=== PATIENT | female | born 1985 | race Caucasian/White ===

== ENCOUNTER 2016-11-22 14:35 | Emergency (ER) | payer OTHER ==
[~2016-11-22] VITALS: Ht 160 cm; Wt 81.7 kg
[2016-11-22] MEDS ORDERED: COMPAZINE10 MG PO (15:18)
[2016-11-22] MEDS ORDERED: ALLERGY EYE DRO10 ML OP (15:18)
[2016-11-22] MEDS ORDERED: FLONASE 0.05%50 MCG NASAL (15:23)
[2016-11-22] MEDS ORDERED: MOBIC7.5 M1 PO (15:24)
[2016-11-22] MEDS ORDERED: TRAZODONE HCL100 MG PO (15:25)
[2016-11-22] MEDS ORDERED: ROBAXIN 750 MG750 M1 PO (16:38)
[2016-11-22 16:43] VITALS: BP 125/82
[2016-11-29] MEDS ORDERED: IBUPROFEN 600600 M1 PO (21:10)
[2016-11-29] MEDS ORDERED: FLAGYL500 MG PO (21:10)
== END 2016-11-22 16:35 | disposition home or self-care (01) ==
LOC: ER 14:35
DX: J30.9 Allergic rhinitis, unspecified (principal); F17.210 Nicotine dependence, cigarettes, uncomplicated; F10.99 Alcohol use, unspecified with unspecified alcohol-induced disorder; F12.10 Cannabis abuse, uncomplicated

== ENCOUNTER 2016-12-28 18:09 | Emergency (ER) | payer OTHER ==
[~2016-12-28] VITALS: Ht 160 cm; Wt 81.7 kg
[~2016-12-28 18:09] MED LIST: ALLERGY EYE DRO10 ML OP; COMPAZINE10 MG PO; FLAGYL500 MG PO; FLONASE 0.05%50 MCG NASAL; IBUPROFEN 600600 M1 PO; MOBIC7.5 M1 PO; ROBAXIN 750 MG750 M1 PO; TRAZODONE HCL100 MG PO
[2016-12-28] MEDS ORDERED: IBUPROFEN 800800 MG PO (19:24)
[2016-12-28] MEDS ORDERED: NORCO 5-325 TA1 EACH PO (19:24)
[2016-12-28] MEDS ORDERED: LIORESAL 10 MG10 MG PO ×2 (19:33→19:34)
[2016-12-28 19:59] VITALS: BP 111/72
== END 2016-12-28 20:00 | disposition home or self-care (01) ==
LOC: ER 18:09
DX: S29.012A Strain of muscle and tendon of back wall of thorax, initial encounter (principal); F17.210 Nicotine dependence, cigarettes, uncomplicated; F10.99 Alcohol use, unspecified with unspecified alcohol-induced disorder; X50.1XXA Overexertion from prolonged static or awkward postures, initial encounter; Y93.89 Activity, other specified; Y92.89 Other specified places as the place of occurrence of the external cause; Y99.8 Other external cause status